=== PATIENT | male | born 1980 | race Two or more races ===

== ENCOUNTER 2024-01-10 13:22 | Emergency (ER) | payer SELFPAY ==
[2024-01-10] MEDS: Ketorolac 10 MG Tab PO ONE (16:09)
[2024-01-10] MEDS: predniSONE 10 MG Tab PO ONE (16:09)
== END 2024-01-10 16:30 | disposition home or self-care (01) ==
LOC: JD.ED 13:22
DX: S82.831A Other fracture of upper and lower end of right fibula, initial encounter for closed fracture (principal); W18.30XA Fall on same level, unspecified, initial encounter
CPT/HCPCS: 73590; 73610; 99283; A9270; J7512